=== PATIENT | female | born 2000 | race Caucasian/White ===

== ENCOUNTER 2024-02-04 10:34 | Emergency (ER) | payer OTHER ==
[~2024-02-04] VITALS: Ht 160 cm; Wt 65.8 kg
[2024-02-04] MEDS ORDERED: KETOROLAC TROMETHAMINE 60 MG VIAL IM ONE (17:30)
[2024-02-04] MEDS ORDERED: ORPHENADRINE CITRATE 30 MG/ML AMPUL IM ONE (17:30)
[2024-02-04 18:47] LABS: ALBUMIN 4.3 gm/dL (3.4-5.0); ALKALINE PHOSPHATASE 66 U/L (50-136); ALT/SGPT 33 U/L (12-78); ANION GAP 6 (10.0-20.0); AST/SGOT 22 U/L (15-37); BILIRUBIN TOTAL 0.54 mg/dL (0.3-1.2); BLOOD UREA NITROGEN 9 mg/dL (7-18); BUN CREA RATIO 13 (7.0-25.0); CALCIUM 9.7 mg/dL (8.5-10.1); CARBON DIOXIDE 30 mEq/L (21-32); CHLORIDE 106 mmol/L (98-107); CKMB < 1.0 NG/ML (0.5-3.6); GFR 104.64; GLOBULINA 3.6 G/DL (2.4-3.5); GLUCOSE FASTING 87 mg/dL (65-100); OSMOLALITY SERUM 272 MOSM/KG (275-295); POTASSIUM 4.68 mEq/L (3.5-5.1); SODIUM 137 mmol/L (136-145); TOTAL PROTEIN 7.9 gm/dL (6.4-8.2)
== END 2024-02-04 20:27 | disposition home or self-care (01) ==
LOC: ER 10:34
PROVIDERS: Emergency Medicine
DX: F44.4 Conversion disorder with motor symptom or deficit (principal); Z88.8 Allergy status to other drugs, medicaments and biological substances; M62.838 Other muscle spasm